=== PATIENT | female | born 1990 | race Two or more races ===

== ENCOUNTER 2018-01-06 21:41 | Emergency (ER) | payer MEDICAID ==
[~2018-01-06] VITALS: Ht 157.5 cm; Wt 53.5 kg
[2018-01-06 23:51] LABS: Basophils # (auto) 0 uL; Basophils % (auto) 0.3 % (0.0-2.0); Eosinophils # (auto) 0 uL; Eosinophils % (auto) 0.2 % (0.0-7.0); Hematocrit 34.8 % (36.0-46.0); Hemoglobin 11.2 g/dL (12.2-16.2); Lymphocytes # (auto) 1.3 uL; Lymphocytes % (auto) 13.9 % (10.0-50.0); Mean Corpuscular Hgb Conc. 32.2 g/dL (32.0-36.0); Mean Corpuscular Volume 86.9 fL (80.0-100.0); Monocytes # (auto) 0.3 uL; Monocytes % (auto) 3.3 % (0.0-12.0); Neutrophils # (auto) 7.8 uL; Neutrophils % (auto) 82.3 % (37.0-80.0); Nucleated Red Blood Cells % 0.1 %; Platelet Count (auto) 267 10^3/uL (140-450); Red Cell Distribution Width 13.7 % (11.8-14.3); White Blood Cell 9.5 10^3/uL (4.4-10.8)
[2018-01-06 23:59] LABS: Albumin 2.9 g/dL (3.4-5.0); BUN/Creatinine Ratio 16.1; Calcium 8.4 mg/dL (8.5-10.1); Potassium 3.9 mmol/L (3.5-5.1)
[2018-01-07 00:01] LABS: Bilirubin, Total 0.2 mg/dL (0.2-1.0); Total Protein 7.6 g/dL (6.4-8.2)
[2018-01-07] MEDS ORDERED: ACETAMINOPHEN/CODEINE#3 (300/30mg) TAB PO ONE (05:00)
[2018-01-07] MEDS ORDERED: ONDANSETRON HCL 4 MG/2 ML VIAL IM ONE (05:00)
[2018-01-07 09:09] VITALS: BP 114/73
== END 2018-01-07 10:02 | disposition home or self-care (01) ==
LOC: ER 21:41
DX: O99.353 Diseases of the nervous system complicating pregnancy, third trimester (principal); G43.009 Migraine without aura, not intractable, without status migrainosus; R42 Dizziness and giddiness; Z3A.38 38 weeks gestation of pregnancy
CPT/HCPCS: 36415; 80053; 82962; 85025; 96372; 99284; J2405

== ENCOUNTER 2018-01-11 04:14 | Inpatient (IN) | payer MEDICAID ==
[~2018-01-11] VITALS: Ht 157.5 cm; Wt 53.5 kg
[2018-01-11] MEDS ORDERED: LACT. RINGERS/OXYTOCIN 20UNITS 1,000 ML IV SCH (04:31)
[2018-01-11] MEDS ORDERED: LACTATED RINGER'S 1,000 ML IV SCH (04:31)
[2018-01-11] MEDS ORDERED: WITCH HAZEL-GLYCERIN PAD TOP PRN (04:45)
[2018-01-11] MEDS ORDERED: LIDOCAINE 2%HCL (LOCAL ANESTH.) INJ 20ML MDV IJ PRN (04:45)
[2018-01-11] MEDS ORDERED: METHYLERGONOVINE MALEATE 0.2 MG/ML AMP IM PRN (04:45)
[2018-01-11] MEDS ORDERED: DERMOPLAST 60ML BOTTLE TOP PRN (04:45)
[2018-01-11] MEDS ORDERED: PHISODERM TOP SOLN 240ML BTL TOP PRN (04:45)
[2018-01-11] MEDS ORDERED: NALBUPHINE HCL 10 MG/1ml INJECTION IV PRN (04:45)
[2018-01-11] MEDS ORDERED: DERMOPLAST 60ML BOTTLE TOP ONE (05:07)
[2018-01-11] MEDS ORDERED: PHISODERM TOP SOLN 240ML BTL TOP ONE (05:08)
[2018-01-11] MEDS ORDERED: WITCH HAZEL-GLYCERIN PAD TOP ONE (05:08)
[2018-01-11] MEDS ORDERED: LACT. RINGERS/OXYTOCIN 20UNITS 1,000 ML IV ONE (05:08)
[2018-01-11] MEDS ORDERED: LIDOCAINE 2%HCL (LOCAL ANESTH.) INJ 20ML MDV ONE (05:10)
[2018-01-11 05:20] LABS: Basophils # (auto) 0 uL; Basophils % (auto) 0.4 % (0.0-2.0); Eosinophils # (auto) 0 uL; Eosinophils % (auto) 0.3 % (0.0-7.0); Hematocrit 33.6 % (36.0-46.0); Lymphocytes # (auto) 2.4 uL; Mean Corpuscular Hemoglobin 28.6 pg (28.0-32.0); Mean Corpuscular Hgb Conc. 32.8 g/dL (32.0-36.0); Mean Corpuscular Volume 87.3 fL (80.0-100.0); Monocytes # (auto) 0.6 uL; Neutrophils # (auto) 7.9 uL; Neutrophils % (auto) 72.3 % (37.0-80.0); Platelet Count (auto) 232 10^3/uL (140-450); Red Blood Cells 3.85 10^6/uL (4.0-5.20); Red Cell Distribution Width 14.2 % (11.8-14.3); White Blood Cell 10.9 10^3/uL (4.4-10.8)
[2018-01-11 05:34] LABS: Urine Bacteria FEW /hpf (None Seen); Urine Blood 3+ /uL (Negative); Urine Mucus FEW (None Seen); Urine Specific Gravity 1.021 (1.001-1.035); Urine WBC 54 /hpf (0 - 5)
[2018-01-11 05:42] LABS: INR 0.86 (0.9-1.15); Partial Thromboplastin Time 29.5 sec (22.64-33.71); Prothrombin Time 9.4 sec (9.37-12.3)
[2018-01-11 05:43] LABS: Albumin 2.9 g/dL (3.4-5.0); BUN/Creatinine Ratio 11.4; Bilirubin, Total 0.3 mg/dL (0.2-1.0); Calcium 8.2 mg/dL (8.5-10.1); Potassium 3.6 mmol/L (3.5-5.1); Total Protein 7.7 g/dL (6.4-8.2)
[2018-01-11 05:47] LABS: Alcohol, Urine < 3.0 mg/dL (0-5); Amphetamine Screen, Urine NEGATIVE (NEGATIVE); Barbiturate Scree,Urine NEGATIVE (NEGATIVE); Benzodiazephine Screen, Urine NEGATIVE (NEGATIVE); Cannabinoid Screen, Urine NEGATIVE (NEGATIVE); Cocaine Screen, Urine NEGATIVE (NEGATIVE); Opiate Scree,Urine NEGATIVE (NEGATIVE); Phencyclidine Screen, Urine NEGATIVE (NEGATIVE)
[2018-01-11] MEDS ORDERED: PREN-96 PO (05:51)
[2018-01-11] MEDS ORDERED: IBUPROFEN 600 MG TAB PO ONE (09:43)
[2018-01-11] MEDS ORDERED: ACETAMINOPHEN 325 MG TAB PO PRN (10:15)
[2018-01-11 11:00] VITALS: BP 125/83
[2018-01-11 11:59] VITALS: BP 129/74
[2018-01-11 15:50] VITALS: BP 110/62
[2018-01-11 18:40] VITALS: BP 110/66
[2018-01-11] MEDS: IBUPROFEN 600 MG TAB PO PRN (19:34)
[2018-01-11 23:30] VITALS: BP 106/55
[2018-01-12] MEDS: IBUPROFEN 600 MG TAB PO PRN (02:54)
[2018-01-12 02:58] VITALS: BP 114/57
[2018-01-12 07:00] VITALS: BP 116/65
[2018-01-12] MEDS ORDERED: MEASLES, MUMPS & RUBELLA VAC(MMRII) 0.5ML SC ONE (08:15)
== END 2018-01-12 10:40 | disposition home or self-care (01) | DRG 560 ==
LOC: LDRP 04:14 → OBSVTOIN 04:14 → LDRP 05:04
PROVIDERS: ADMIT Obstetrics & Gynecology; ATTEND Obstetrics & Gynecology
PROC: 10E0XZZ Delivery of Products of Conception, External Approach (ICD-10-PCS; principal; 2018-01-11)
DX: O42.02 Full-term premature rupture of membranes, onset of labor within 24 hours of rupture (principal); Z86.32 Personal history of gestational diabetes; Z37.0 Single live birth; Z3A.38 38 weeks gestation of pregnancy; Z88.5 Allergy status to narcotic agent
CPT/HCPCS: 36415; 59025; 59409; 80053; 80307; 81001; 81002; 82962; 85025; 85610; 85730; 86850; 86900; 86901; 90471; 96365; 96366; J2590

== ENCOUNTER 2019-07-20 13:07 | Emergency (ER) | payer MEDICAID ==
[~2019-07-20] VITALS: Ht 157.5 cm; Wt 41.7 kg
[~2019-07-20 13:07] MED LIST: PREN-96 PO
[2019-07-20 14:09] LABS: Urine Bacteria NONE SEEN /hpf (None Seen); Urine Blood TRACE /uL (Negative); Urine Mucus FEW (None Seen); Urine Specific Gravity 1.022 (1.001-1.035); Urine WBC 1 /hpf (0 - 5)
[2019-07-20 14:48] LABS: Albumin 3.8 g/dL (3.4-5.0); Calcium 8.1 mg/dL (8.5-10.1); Potassium 3.9 mmol/L (3.5-5.1)
[2019-07-20 14:51] LABS: BUN/Creatinine Ratio 14.7; Bilirubin, Total 0.7 mg/dL (0.2-1.0); Total Protein 7.7 g/dL (6.4-8.2)
[2019-07-20 14:56] LABS: Basophils # (auto) 0 uL; Basophils % (auto) 0.6 % (0.0-2.0); Eosinophils # (auto) 0 uL; Eosinophils % (auto) 0.6 % (0.0-7.0); Hematocrit 41.3 % (36.0-46.0); Hemoglobin 13.8 g/dL (12.2-16.2); Lymphocytes # (auto) 1.3 uL; Lymphocytes % (auto) 21.3 % (10.0-50.0); Mean Corpuscular Hgb Conc. 33.4 g/dL (32.0-36.0); Mean Corpuscular Volume 89.9 fL (80.0-100.0); Monocytes # (auto) 0.4 uL; Monocytes % (auto) 6.3 % (0.0-12.0); Neutrophils # (auto) 4.3 uL; Neutrophils % (auto) 71.2 % (37.0-80.0); Platelet Count (auto) 224 10^3/uL (140-450); Red Blood Cells 4.59 10^6/uL (4.0-5.20); Red Cell Distribution Width 13.6 % (11.8-14.3); White Blood Cell 6.1 10^3/uL (4.4-10.8)
[2019-07-20 18:10] VITALS: BP 104/60
== END 2019-07-20 19:20 | disposition home or self-care (01) ==
LOC: ER 13:14
DX: O20.8 Other hemorrhage in early pregnancy (principal); Z88.5 Allergy status to narcotic agent; Z79.899 Other long term (current) drug therapy; Z3A.01 Less than 8 weeks gestation of pregnancy
CPT/HCPCS: 36415; 76801; 80053; 81001; 81025; 84702; 85025